=== PATIENT | female | born 1965 | race Caucasian/White ===

== ENCOUNTER 2020-08-22 08:41 | Emergency (ER) | payer MEDICARE, MEDICAID, SELFPAY ==
--- NOTE | ~2020-08-22 | CT_ITS ---
EXAMINATION: CT ABDOMEN AND PELVIS WITHOUT CONTRAST CLINICAL INFORMATION: Right flank pain COMPARISON: Previous CT of the abdomen and pelvis February 2019 TECHNIQUE: Multidetector volumetric imaging was performed from the superior aspect of the liver through the pubic symphysis. Sagittal and coronal reformatted images were obtained on the technologist's workstation. This CT examination was performed using dose optimization techniques as appropriate, variously including the following: *Automated exposure control *Adjustment of mA and/or kV according to patient size (this includes techniques or standardized protocols for targeted exams where dose is matched to indication/reason for exam; i.e. extremities or head) *Use of iterative reconstruction technique DLP: mGy-cm FINDINGS: LUNG BASES: The visualized lung bases are unremarkable. LIVER, GALLBLADDER, AND BILIARY TREE: The liver is normal in size, shape, and attenuation. No focal hepatic lesion or biliary ductal dilatation is present. The gallbladder is unremarkable with no evidence of radiopaque gallstones, gallbladder wall thickening, or obvious pericholecystic inflammatory changes. PANCREAS: Unremarkable. SPLEEN: Unremarkable. ADRENAL GLANDS: Unremarkable. KIDNEYS AND URETERS: The kidneys are normal in size, shape, and attenuation. No hydronephrosis, hydroureter, or calculi seen. No perinephric stranding. BLADDER: Unremarkable. GASTROINTESTINAL TRACT: There is stool throughout the colon. The small and large bowel are otherwise unremarkable. The appendix is unremarkable. ABDOMINAL WALL: There is evidence of previous ventral hernia repair with mesh. LYMPH NODES: Normal. VASCULAR: Unremarkable. PELVIC VISCERA: Unremarkable. OSSEOUS STRUCTURES: There are degenerative changes of the spine and scoliosis. CT/CT abdomen pelvis wo con IMPRESSION: Large amount of stool throughout the colon questionable for constipation otherwise unremarkable exam. No stone seen.
[2020-08-22 09:13] LABS: Glucose Urine UA NEG (NEG); Leukocyte Esterase Urine NEG (NEG); Nitrite Urine NEG (NEG); Specific Gravity - Urine 1.025 (1.005-1.025); Urine Blood 3+ (NEG); Urine Ketones NEG (NEG); Urine Protein TRACE MG/DL (NEG-TRACE)
[2020-08-22 09:16] LABS: Appearance Urine CLOUDY; Color Urine YELLOW
[2020-08-22 09:20] LABS: Mucus Urine 1+ /LPF; RBC Urine TNTC /HPF (0); UACC CULT YES
--- NOTE | 2020-08-22 09:47 | ED.FEMALEGU ---
HPI - Female Genitourinary General Chief complaint: General Medical Stated complaint: blood in urine Time Seen by Provider: 08/22/20 08:56 Source: patient Mode of arrival: ambulatory Limitations: no limitations History of Present Illness HPI Narrative: 54 yo female with remote hx of kidney stones on eliquis for DVT related to travel has chronic back pain but over last 2 days it worsened and she noted blood in her urine c/o nausea, did have her PT come over and tried to get knot out but it did not help MD elicited complaint: other (hematuria/flank pain) Pertinent past history: other (renal colic) Onset (ago): day(s) (2) Location of symptoms: flank Severity: severe Quality of pain: sharp Consistency: constant Urinary symptoms: Hematuria Exacerbating factors: none Relieving factors: none Associated symptoms: nausea Treatment prior to arrival: none Related Data Previous Rx's Medication Instructions Recorded cefuroxime axetil 500 mg PO BID 7 Days #28 tab 08/22/20 cyclobenzaprine 10 mg PO TID PRN #14 tab 08/22/20 lidocaine 1 patch TOPICAL DAILY PRN #10 ea 08/22/20 ondansetron 4 mg PO Q8H PRN #20 tab 08/22/20 sennosides [senna] 8.6 mg PO BEDTIME PRN #30 cap 08/22/20 Allergies Allergy/AdvReac Type Severity Reaction Status Date / Time magnesium sulfate Allergy Severe HIVES-SEVER Unverified 03/16/20 16:43 [MAGNESIUM SULFATE] E bupropion [From WELLBUTRIN] Allergy Intermediate HIVES Unverified 03/16/20 16:43 magnesium Allergy Unknown Hives,Rash Verified 04/28/17 00:00 Review of Systems Review of Systems: Constitutional : No Fever, No Chills ENT/Mouth : No sore throat Eyes: No Eye Pain, No Swelling, No Redness Cardiovascular : No Chest Pain, No SOB Respiratory : No Cough, No Sputum, No Wheezing Gastrointestinal : positive Nausea, no Vomiting, No Diarrhea, no abdominal pain Genitourinary : no Dysuria, positive urinary frequency, positive Hematuria, positive Flank Pain, no hesitancy Musculoskeletal : No joint pain, No Myalgias Skin : No Skin Lesions, No rash Neuro : No Weakness, No Numbness, No Headache Psych : No Anxiety/Panic, No Depression Heme/Lymph: No Bruising, No Lymphadenopathy Endocrine : No Polyuria, No Polydipsia All other systems reviewed and are negative [facility] Past Medical History Attestation statement: The following information was validated with the patient. Medical History DVT (deep venous thrombosis) High cholesterol Kidney stones Surgical History H/O hernia repair Social History Social History Smoking Status: Current every day smoker Use of substances other than those prescribed or required for medical reasons: No Advance Directives: No Advance Directives Information Provided: No Physical Exam Vital Signs: Vital Signs: Last Vital Signs Temp 98.9 F 08/22/20 09:51 Pulse 86 08/22/20 10:43 Resp 18 08/22/20 10:43 BP 132/74 08/22/20 10:43 Pulse Ox 94 08/22/20 10:43 Body Mass Index 34.7 Appearance: Alert. Oriented X3. No acute distress. Eyes: Pupils equal, round and reactive to light. ENT: Pharynx normal. Neck: Normal inspection. Neck supple. CVS: Normal heart rate and rhythm. Pulses normal. Respiratory: No respiratory distress. Breath sounds normal. Abdomen: Soft and nontender. Back: L flank hematoma noted small fist size suspect from PT, R flank mild CVA ttp Skin: Skin warm and dry. Normal skin color. Normal skin turgor. Extremities: No lower extremity edema. No calf ttp Neuro: Oriented X 3. No motor deficit. No sensory deficit. Course Course Course Narrative: pain improved will start on antibiotics, hold AC therapy x 2 days MDM - Female Genitourinary MDM Narrative Medical decision making narrative: 54 yo female on AC therapy hx of renal colic comes in with R flank pain and hematuria at this time will need labs, IV morphine for pain, CT scan for renal colic Lab Data Result diagrams: 08/22/20 10:02 08/22/20 10:02 Labs: Lab Results 08/22/20 08/22/20 08/22/20 Range/Units 09:03 10:02 10:02 WBC 11.2 H (4.8-10.8) X10*3/uL RBC 4.80 (4.20-5.50) X10*6/uL Hgb 14.7 (12.0-16.0) g/dl Hct 45.3 (37-47) % MCV 94.4 (80-98) fL MCH 30.6 (27.0-33.0) pg MCHC 32.5 (31.0-35.0) g/dl RDW 13.6 (11.0-16.0) % Plt Count 271 (160-400) X10*3/uL MPV 9.3 L (9.4-12.3) fL Immature Gran % (Auto) 0.6 H (0.0-0.4) % Neut % (Auto) 66.5 (45-73) % Lymph % (Auto) 24.6 (20-40) % [place] % (Auto) 7.2 (2-11) % Eos % (Auto) 0.8 (0-4) % Baso % (Auto) 0.3 (0-2) % Lymph # (Auto) 2.8 (1.2-4.9) X10*3/uL [place] # (Auto) 0.8 (0.1-1.2) X10*3/uL Eos # (Auto) 0.1 (0.0-0.4) X10*3/uL Baso # (Auto) 0.0 (0.0-0.2) X10*3/uL Abs Immat Gran (auto) 0.07 H (0.00-0.03) X10*3/uL Absolute Neuts (auto) 7.4 (2.0-8.3) X10*3/uL Absolute Nucleated RBC 0.000 (0.0-0.012) X10*3/uL Nucleated RBC % (auto) 0.0 (0.0-0.2) /100WBC PT 12.1 (10.8-13.0) SEC INR 1.0 (0.9-1.1) APTT 34.8 (24.1-38.0) SEC Sodium (135-145) mmol/L Potassium (3.3-5.1) mmol/L Chloride (96-108) mmol/L Carbon Dioxide (22-29) mmol/L Anion Gap (12-20) BUN (9-16) mg/dL Creatinine (0.5-1.4) mg/dL Estim Creat Clear Calc Estimated GFR Random Glucose (60-115) mg/dL Calcium (8.4-10.2) mg/dL Magnesium (1.6-2.6) mg/dL Total Bilirubin (0.0-1.0) mg/dL Direct Bilirubin (0.0-0.5) mg/dL AST (5-31) U/L ALT (0-31) U/L Alkaline Phosphatase (39-117) U/L Total Protein (6.5-8.0) g/dL Albumin (3.5-5.0) g/dL Lipase (8-78) U/L Urine Color YELLOW Urine Appearance CLOUDY Urine pH 8.0 (5.0-8.0) Ur Specific Baker 1.025 (1.005-1.025) Urine Protein TRACE (NEG-TRACE) MG/DL Urine Glucose (UA) NEG (NEG) MG/DL Urine Ketones NEG (NEG) MG/DL Urine Blood 3+ H (NEG) Urine Nitrite NEG (NEG) Ur Leukocyte Esterase NEG (NEG) Urine RBC TNTC H (0) /HPF Urine WBC 5-9 H (0-4) /HPF Ur Squamous Epith Cells NONE /LPF Urine Bacteria NONE /LPF Urine Mucus 1+ /LPF 08/22/20 Range/Units 10:02 WBC (4.8-10.8) X10*3/uL RBC (4.20-5.50) X10*6/uL Hgb (12.0-16.0) g/dl Hct (37-47) % MCV (80-98) fL MCH (27.0-33.0) pg MCHC (31.0-35.0) g/dl RDW (11.0-16.0) % Plt Count (160-400) X10*3/uL MPV (9.4-12.3) fL Immature Gran % (Auto) (0.0-0.4) % Neut % (Auto) (45-73) % Lymph % (Auto) (20-40) % [place] % (Auto) (2-11) % Eos % (Auto) (0-4) % Baso % (Auto) (0-2) % Lymph # (Auto) (1.2-4.9) X10*3/uL [place] # (Auto) (0.1-1.2) X10*3/uL Eos # (Auto) (0.0-0.4) X10*3/uL Baso # (Auto) (0.0-0.2) X10*3/uL Abs Immat Gran (auto) (0.00-0.03) X10*3/uL Absolute Neuts (auto) (2.0-8.3) X10*3/uL Absolute Nucleated RBC (0.0-0.012) X10*3/uL Nucleated RBC % (auto) (0.0-0.2) /100WBC PT (10.8-13.0) SEC INR (0.9-1.1) APTT (24.1-38.0) SEC Sodium 140 (135-145) mmol/L Potassium 4.4 (3.3-5.1) mmol/L Chloride 102 (96-108) mmol/L Carbon Dioxide 26 (22-29) mmol/L Anion Gap 16 (12-20) BUN 20 H (9-16) mg/dL Creatinine 0.91 (0.5-1.4) mg/dL Estim Creat Clear Calc 72.8 Estimated GFR > 60 Random Glucose 82 (60-115) mg/dL Calcium 9.8 (8.4-10.2) mg/dL Magnesium 1.8 (1.6-2.6) mg/dL Total Bilirubin 0.6 (0.0-1.0) mg/dL Direct Bilirubin 0.2 (0.0-0.5) mg/dL AST 12 (5-31) U/L ALT 23 (0-31) U/L Alkaline Phosphatase 74 (39-117) U/L Total Protein 6.6 (6.5-8.0) g/dL Albumin 4.2 (3.5-5.0) g/dL Lipase 63 (8-78) U/L Urine Color Urine Appearance Urine pH (5.0-8.0) Ur Specific Baker (1.005-1.025) Urine Protein (NEG-TRACE) MG/DL Urine Glucose (UA) (NEG) MG/DL Urine Ketones (NEG) MG/DL Urine Blood (NEG) Urine Nitrite (NEG) Ur Leukocyte Esterase (NEG) Urine RBC (0) /HPF Urine WBC (0-4) /HPF Ur Squamous Epith Cells /LPF Urine Bacteria /LPF Urine Mucus /LPF Discharge Plan Discharge Clinical Impression: Acute hemorrhagic cystitis, Acute flank pain, Constipation Patient Disposition: Home, Self-Care Instructions: Constipation (ED), Urinary Tract Infection in Women (ED), Flank Pain (ED) Additional Instructions: return to ED for any worsening symptoms or concerns hold blood thinner x 2 days Prescriptions: New cyclobenzaprine 10 mg tablet 10 mg PO TID PRN (Reason: muscle spasm) Qty: 14 RF: 0 cefuroxime axetil 250 mg tablet 500 mg PO BID 7 Days Qty: 28 RF: 0 lidocaine 4 % adhesive patch,medicated 1 patch topical DAILY PRN (Reason: pain) Qty: 10 RF: 0 ondansetron 4 mg tablet,disintegrating 4 mg PO Q8H PRN (Reason: nausea and vomiting) Qty: 20 RF: 0 senna 8.6 mg capsule 8.6 mg PO BEDTIME PRN (Reason: constipation) Qty: 30 RF: 0 Referrals: Sanjay Maguire MD [Primary Care Provider] - 2 days (if not better) Stand Alone Forms: Work/School Release
[2020-08-22 09:51] VITALS: BP 126/81; PULSE 94; RESP 18; TEMP 37.2; O2SAT 95; BMI 34.7
[2020-08-22 10:06] LABS: MANUAL DIFF FLAG NO
[2020-08-22] MEDS: 0.9 % Sodium Chloride 500 ML IV (10:07)
[2020-08-22] MEDS: Morphine Sulfate 4 MG/ML CARTRIDGE IVPUSH (10:07)
[2020-08-22 10:08] LABS: Basophils Percent Auto 0.3 % (0-2); Eosinophils Absolute Auto 0.1 X10*3/uL (0.0-0.4); Eosinophils Percent Auto 0.8 % (0-4); Hematocrit 45.3 % (37-47); Hemoglobin 14.7 g/dl (12.0-16.0); Imm Gran Abs Auto 0.07 X10*3/uL (0.00-0.03); Imm Gran Pct Auto 0.6 % (0.0-0.4); Lymphocytes Absolute Auto 2.8 X10*3/uL (1.2-4.9); Lymphocytes Percent Auto 24.6 % (20-40); Mean Corpuscular HGB Conc 32.5 g/dl (31.0-35.0); Mean Corpuscular Hemoglobin 30.6 pg (27.0-33.0); Mean Corpuscular Volume 94.4 fL (80-98); Mean Platelet Volume 9.3 fL (9.4-12.3); Monocytes Absolute Auto 0.8 X10*3/uL (0.1-1.2); Monocytes Percent Auto 7.2 % (2-11); Neutrophils Absolute Auto 7.4 X10*3/uL (2.0-8.3); Neutrophils Percent Auto 66.5 % (45-73); Platelet Count 271 X10*3/uL (160-400); Red Cell Distribution Width 13.6 % (11.0-16.0); White Blood Count 11.2 X10*3/uL (4.8-10.8)
[2020-08-22] MEDS: ondansetron HCL 4 MG/2 ML VIAL IVPUSH (10:08)
[2020-08-22 10:15] LABS: Prothrombin Time 12.1 SEC (10.8-13.0)
[2020-08-22 10:18] LABS: Partial Thromboplastin Time 34.8 SEC (24.1-38.0)
[2020-08-22 10:27] LABS: Alanine Aminotransferase 23 U/L (0-31); Albumin Level 4.2 g/dL (3.5-5.0); Alkaline Phosphatase 74 U/L (39-117); Anion Gap 16 (12-20); Aspartate Amino Transferase 12 U/L (5-31); Bilirubin Direct 0.2 mg/dL (0.0-0.5); Bilirubin Total 0.6 mg/dL (0.0-1.0); Blood Urea Nitrogen 20 mg/dL (9-16); Calcium 9.8 mg/dL (8.4-10.2); Carbon Dioxide 26 mmol/L (22-29); Chloride 102 mmol/L (96-108); Creatinine Clr Calc Pharmacy 72.8; Estimated Glomerular Filt Rate > 60; Glucose Random 82 mg/dL (60-115); Lipase 63 U/L (8-78); Magnesium 1.8 mg/dL (1.6-2.6); Potassium 4.4 mmol/L (3.3-5.1); Sodium 140 mmol/L (135-145); Total Protein 6.6 g/dL (6.5-8.0)
[2020-08-22 10:43] VITALS: BP 132/74; PULSE 86; RESP 18; O2SAT 94
== END 2020-08-22 12:32 | disposition home or self-care (01) ==
PROVIDERS: Physician Assistant Medical; Emergency Provider Emergency Medicine; PCP Internal Medicine
DX: N30.01 Acute cystitis with hematuria (principal); K59.00 Constipation, unspecified; R10.9 Unspecified abdominal pain; G89.29 Other chronic pain; M54.5 Low back pain; F17.200 Nicotine dependence, unspecified, uncomplicated; Z87.442 Personal history of urinary calculi; Z86.718 Personal history of other venous thrombosis and embolism; Z79.01 Long term (current) use of anticoagulants
CPT/HCPCS: 36415; 74176; 80048; 80076; 81001; 83690; 83735; 85025; 85610; 85730; 87086; 87088; 87186; 96361; 96374; 96375; 99284; J2270; J2405

== ENCOUNTER 2021-06-20 18:55 | Emergency (ER) | payer MEDICARE, MEDICAID, SELFPAY ==
--- NOTE | ~2021-06-20 | XR_ITS ---
EXAMINATION: XR CHEST CLINICAL INFORMATION: Hypoxia COMPARISON: Chest x-ray on 09/07/2019 TECHNIQUE: Frontal view of the chest was obtained. FINDINGS: No significant abnormality is noted involving the heart, lungs, mediastinum, bony thorax or soft tissues. XR/XR chest 1V IMPRESSION: Unremarkable examination.
[2021-06-20 20:09] VITALS: BP 126/75; PULSE 98; RESP 22; TEMP 36.8; O2SAT 90; BMI 36.2
[2021-06-20 21:05] LABS: Influenza A PCR NEGATIVE (Negative); Influenza B PCR NEGATIVE (Negative); Resp Syncy Virus RNA Qual PCR NEGATIVE (Negative); SARS COV2 PCR INHOUSE NEGATIVE (Negative)
[2021-06-20 21:50] VITALS: BP 125/72; PULSE 96; RESP 17; TEMP 36.8; O2SAT 93
[2021-06-20] MEDS: Albuterol/Iprat 2.5/0.5MG 3 ML AMPUL.NEB INHALE (22:18)
[2021-06-20 22:19] VITALS: PULSE 63; RESP 16; O2SAT 98
--- NOTE | 2021-06-20 22:31 | ED.URI ---
HPI - URI/Sore Throat General Chief Complaint: Upper Respiratory Symptoms Stated Complaint: flu like symptoms Time Seen by Provider: 06/20/21 21:48 Source: patient Mode of arrival: ambulatory History of Present Illness HPI Narrative: 55-year-old female with a past medical history of hyperlipidemia, renal stones, DVT previously on Eliquis, bronchitis, asthma, presenting to the ED complaining of nausea, vomiting, chills, body aches, dry cough, dyspnea, chest tightness x 2-3 days. Also reports fever T-max 101?. Reports baseline O2 93-95% on room air. Denies ear pain, sore throat, pedal edema, calf pain, abdominal pain MD elicited complaint: fever and cough Related Data Previous Rx's Medication Instructions Recorded cefuroxime axetil 250 mg tablet 500 mg PO BID 7 Days #28 tab 08/22/20 cyclobenzaprine 10 mg tablet 10 mg PO TID PRN #14 tab 08/22/20 lidocaine 4 % topical patch 1 patch TOPICAL DAILY PRN #10 ea 08/22/20 ondansetron 4 mg disintegrating 4 mg PO Q8H PRN #20 tab 08/22/20 tablet sennosides 8.6 mg capsule (senna) 8.6 mg PO BEDTIME PRN #30 cap 08/22/20 Allergies Allergy/AdvReac Type Severity Reaction Status Date / Time magnesium sulfate Allergy Severe HIVES-SEVER Verified 06/20/21 20:09 [MAGNESIUM SULFATE] E bupropion [From WELLBUTRIN] Allergy Intermediate HIVES Verified 06/20/21 20:09 magnesium Allergy Unknown Hives,Rash Verified 06/20/21 20:09 dulaglutide [From Trulicity] AdvReac Unknown Verified 06/20/21 20:09 Review of Systems Review of Systems: Constitutional: + Fever, + Chills, No Fatigue, No Malaise ENT/Mouth:No Ear Pain, No Nasal Congestion, No sore throat, No Rhinorrhea, No Swallowing Difficulty Eyes: No Eye Pain, No Swelling, No Redness, +No Discharge Cardiovascular: + Chest Pain, + SOB, No Dyspnea on Exertion, No Orthopnea, No Edema, No Palpitations Respiratory: + Cough, + Wheezing, No Dyspnea Gastrointestinal: No Nausea, No Vomiting, No Diarrhea, No Constipation, No Abdominal pain Genitourinary: No Dysuria, No Urinary Frequency, No Urgency, No Flank Pain Musculoskeletal: No joint pain, + Myalgias, No Joint Swelling Skin: No Skin Lesions, No rash Neuro: No Weakness, No Headache Yes all other systems are reviewed and are negative [facility] Past Medical History Attestation statement: The following information was validated with the patient. Medical History DVT (deep venous thrombosis) High cholesterol Kidney stones Surgical History H/O hernia repair Social History Social History Advance Directives: No Advance Directives Information Provided: No Physical Exam Vital Signs: Vital Signs: Last Vital Signs Temp 98.2 F 06/20/21 21:50 Pulse 63 06/20/21 22:19 Resp 16 06/20/21 22:19 BP 125/72 06/20/21 21:50 Pulse Ox 93 06/20/21 21:50 BMI result Body Mass Index 36.2 Const: General: cooperative, healthy appearing, no acute distress and well developed Orientation/consciousness: patient oriented x3 Limitations: no limitations HENMT: Head: Yes normal to inspection Ears: hearing grossly normal bilaterally General nose exam: Normal external nose present Face and sinus: Yes normal facial exam Eyes: General: appearance normal, both eyes and all related structures EOM: EOMs intact bilaterally Neck: Neck: Yes normal visual inspection and Yes no meningeal signs Resp: Effort & Inspection: normal respiratory effort and no respiratory distress Auscultation: clear to auscultation bilaterally, no rales, no rhonchi and wheezes expiratory wheezes and lower bilaterally Cardio: Rate: regular rate Heart sounds: S1 normal heart sound present and S2 normal heart sound present GI: Inspection: Yes normal to inspection Palpation (GI): Soft to palpation, nontender, no guarding and not rigid Skin: Rashes: no rashes Wounds: no wounds Neuro: General: patient oriented x3 and no meningeal signs Gait exam (Neuro): Normal gait present Extrem: General: Yes normal to inspection, Yes no pedal edema and Yes no calf tenderness Course Course Course Narrative: XR chest 1V IMPRESSION: Unremarkable examination. -COVID-19/influenza/RSV negative --patient now refusing EKG and would like to leave with printed COVID results prior to lab results. Patient will sign out AMA. Risks discussed. Patient is A&O x3, competent to make decisions MDM - URI/Sore Throat MDM Narrative Medical decision making narrative: 55-year-old female with a past medical history of hyperlipidemia, renal stones, DVT previously on Eliquis, bronchitis, asthma, presenting to the ED complaining of nausea, vomiting, chills, body aches, dry cough, dyspnea, chest tightness x 2-3 days. On exam initially tachypneic, satting 90% on room air, on my evaluation in no respiratory distress, respiratory rate WNL satting 93-94% on RA, lungs with good air movement, bibasilar expiratory wheeze, no pedal edema/calf tenderness. Talking in complete sentences. Concern for asthma/bronchitis exacerbation vs viral syndrome/COVID-19 vs pneumonia. Symptoms atypical for ACS/PE. Low concern for severe sepsis as vital sign abnormalities likely from anxiety around COVID potential Plan: EKG, labs, CXR, COVID-19 testing, DuoNeb, re-evaluate Differential Diagnosis Differential diagnosis: Likely upper respiratory infection, viral infection, bronchitis, influenza and pharyngitis Medical Records Attestation: I reviewed the patient's medical records. Lab Data Attestation: I reviewed the patient's lab results. Result diagrams: 06/20/21 22:23 06/20/21 22:23 Labs: Lab Results 06/20/21 Range/Units 20:17 Influenza Type A (PCR) NEGATIVE (Negative) Influenza Type B (PCR) NEGATIVE (Negative) RSV RNA Qual (PCR) NEGATIVE (Negative) SARS-CoV-2 RNA (RT-PCR) NEGATIVE (Negative) Discharge Plan Discharge Clinical Impression: Chronic bronchitis with wheezing Patient Disposition: Left Against Medical Advice Instructions: Chronic Bronchitis (ED) Additional Instructions: You tested negative for COVID-19, the flu, and RSV. Chest x-ray is unremarkable Continue home prescribed medications Your signing out against medical advice, were leaving before of your results are back, you are always welcome to return to the emergency department for re-evaluation/further management if symptoms persist or worsen. Return to the ED if you develop constant worsening shortness of breath, chest pain, fever or chills. Use your inhalers/nebulizer machine at home Prescriptions: No Action cyclobenzaprine 10 mg tablet 10 mg PO TID PRN (Reason: muscle spasm) Qty: 14 RF: 0 cefuroxime axetil 250 mg tablet 500 mg PO BID 7 Days Qty: 28 RF: 0 lidocaine 4 % adhesive patch,medicated 1 patch topical DAILY PRN (Reason: pain) Qty: 10 RF: 0 ondansetron 4 mg tablet,disintegrating 4 mg PO Q8H PRN (Reason: nausea and vomiting) Qty: 20 RF: 0 senna 8.6 mg capsule 8.6 mg PO BEDTIME PRN (Reason: constipation) Qty: 30 RF: 0 Referrals: Sanjay Maguire MD [Primary Care Provider] - 2 days Stand Alone Forms: Against Medical Advice
[2021-06-20 22:37] LABS: Basophils Percent Auto 0.4 % (0-2); Imm Gran Abs Auto 0.03 X10*3/uL (0.00-0.03); Imm Gran Pct Auto 0.4 % (0.0-0.4); MANUAL DIFF FLAG SCAN; Mean Corpuscular Volume 92.2 fL (80.0-98.0); PLT CLUMP 1; SCAN SMEAR FLAG 1
[2021-06-20 22:39] LABS: Eosinophils Absolute Auto 0.1 X10*3/uL (0.0-0.4); Eosinophils Percent Auto 1.2 % (0-4); Hematocrit 47.4 % (37.0-47.0); Hemoglobin 15.4 g/dl (12.0-16.0); Lymphocytes Absolute Auto 2.3 X10*3/uL (1.2-4.9); Lymphocytes Percent Auto 28.4 % (20-40); Mean Corpuscular HGB Conc 32.5 g/dl (31.0-35.0); Mean Platelet Volume 10.3 fL (9.4-12.3); Monocytes Absolute Auto 0.6 X10*3/uL (0.1-1.2); Monocytes Percent Auto 7.8 % (2-11); Neutrophils Percent Auto 61.8 % (45-73); Red Blood Count 5.14 X10*6/uL (4.20-5.50)
[2021-06-20 22:46] VITALS: BP 112/63; PULSE 95; RESP 16; TEMP 36.9; O2SAT 95
[2021-06-20 22:49] LABS: Lactic Acid 1.1 mmol/L (0.5-2.0)
--- NOTE | 2021-06-20 22:49 | PC.NURSE ---
PATIENT REFUSED EKG ,PROVIDER AWARE .
[2021-06-20 22:55] LABS: Alanine Aminotransferase 18 U/L (0-31); Albumin Level 4.1 g/dL (3.5-5.0); Alkaline Phosphatase 68 U/L (39-117); Anion Gap 13 (12-20); Aspartate Amino Transferase 18 U/L (5-31); Bilirubin Direct 0.2 mg/dL (0.0-0.5); Bilirubin Total 0.5 mg/dL (0.0-1.0); Blood Urea Nitrogen 10 mg/dL (9-16); Calcium 9.8 mg/dL (8.4-10.2); Carbon Dioxide 26 mmol/L (22-29); Chloride 105 mmol/L (96-108); Estimated Glomerular Filt Rate 58; Glucose Random 121 mg/dL (60-115); Magnesium 1.9 mg/dL (1.6-2.6); Potassium 4.4 mmol/L (3.3-5.1); Sodium 140 mmol/L (135-145)
--- NOTE | 2021-06-20 22:56 | PC.NURSE ---
PT REFUSED EKG AND ANY FURTHER WORK UP. DOES NOT WANT TO WAIT FOR LAB RESULTS. ONLY WANTS COVID RESULTS. PT AWARE THAT SHE SHPULD RETEST IF SHE CONTINUES TO HAVE SYMPTOMS.
[2021-06-20 22:58] LABS: B Type Natriuretic Peptide 13 pg/mL (<100); Troponin-I High Sensitivity 5.1 ng/L (<3.5-17.0)
[2021-06-20 23:07] LABS: Platelet Count 175 X10*3/uL (160-400); White Blood Count 8.1 X10*3/uL (4.8-10.8)
[2021-06-20 23:10] LABS: SLIDE REVIEW VERIFIED
== END 2021-06-20 23:18 | disposition left against medical advice (07) ==
PROVIDERS: Physician Assistant; Emergency Provider Emergency Medicine; PCP Internal Medicine
DX: J42 Unspecified chronic bronchitis (principal); R50.9 Fever, unspecified; M79.10 Myalgia, unspecified site; R06.02 Shortness of breath; Z20.822 Contact with and (suspected) exposure to COVID-19; Z79.01 Long term (current) use of anticoagulants; Z79.899 Other long term (current) drug therapy
CPT/HCPCS: 0241U; 36415; 71045; 80048; 80076; 83605; 83735; 83880; 84484; 85025; 87040; 94640; 96360; 99284